=== PATIENT | female | born 1945 | race Caucasian/White ===

== ENCOUNTER 2017-03-11 14:57 | Inpatient (IN) | payer MEDICARE ==
[~2017-03-11] VITALS: Ht 182.9 cm; Wt 99.8 kg
[2017-03-11] VITALS (8 sets, daily range): BP systolic 137–160; BP diastolic 53–79; PULSE 72–95; RESP 17–24; O2SAT 93–98
[2017-03-11 15:18] LABS: BASOPHILS % (AUTO) 0.2 % (0-3)
[2017-03-11 15:23] LABS: EOSINOPHILS % (AUTO) 6.5 % (0-5); Mean Corpuscular Hemoglobin 32.7 pg (27.0-35.0); NEUTROPHILS % (AUTO) 54.8 % (40-74); Platelet Count 508 bil/L (150-400)
--- NOTE | 2017-03-11 15:44 | DRSVH ---
PROCEDURE: X-RAY CHEST ONE VIEW, PORTABLE ([id number]) INDICATIONS: Chest pain. TECHNIQUE: One view of the chest was acquired. COMPARISON: None. FINDINGS: Surgical changes and devices: Sternotomy and CABG. Lungs and pleura: There is moderate left pleural effusion. No pneumothorax. Left basilar atelectasis . Mediastinum: Mediastinal contours appear normal. Heart size is normal. Bones and chest wall: No suspicious bony lesions. Overlying soft tissues appear unremarkable. IMPRESSION: Moderate left pleural effusion with left basilar atelectasis. Dictated by: Srikanth Jaramillo M.D. on 03/11/2017 at 15:40 Approved by: Srikanth Jaramillo M.D. on 03/11/2017 at 15:42
[2017-03-11 15:55] LABS: TROPONIN T < 0.010 ug/L (0.0-0.011)
--- NOTE | 2017-03-11 15:58 | ED.REPORT ---
HPI-General Illness Date of Service Mar 11, 2017 ED Provider: Ike Juarez MD Patient is a 71 year old female with a history of stage 3 renal failure, DVT and PE who presents to the ED status post CABG from 03/02/17 via EMS complaining of right sided chest pain onset 0230 this morning. Associated symptoms include shortness of breath, cough, palpitations, pain with deep inspiration and dyspnea with exertion. She describes the pain as a sharp pressure. The patient states that the pain was slightly relieved, going from a 7/10 to a 5/10 after receiving nitro at [facility]. Patient reports that she was working hard with her cardiac therapy yesterday and thought her pain might be musculoskeletal but she also has PE scarring and decided she should come in to have everything checked out. Patient is not currently on anticoagulants. Nursing Notes Stated Complaint: CHEST PAIN Chief Complaint: Chest Pain Nursing Notes Reviewed: Yes Allergies: Coded Allergies: TAPE (Verified Allergy, Mild, 03/11/17) warfarin (Verified Allergy, Mild, emesis, 03/11/17) Uncoded Allergies: SULFA (Allergy, Severe, anaphylaxis, 03/11/17) STATINS (Allergy, Intermediate, muscle weakness, 03/11/17) General Time Seen by MD: 15:19 Chief Complaint Chest pain Hx Obtained From: Patient Arrived By: Ambulance Sudden in Onset?: Yes Onset Occurred: 9 - 12 hours ago Symptom Duration: Since onset Location: : Chest Quality: Painful Severity: Current: Moderate Associated with: Reports: Shortness of breath Recent Healthcare: Recent doctor visit, Recent hospitalization Past Medical History Past Medical History PE DVT Past Surgical History CABG Smoking History Unknown if Ever Smoker Social History Other Social History: Good social support Ambulatory Status Independent Review of Systems Full Review of Systems Constitutional: Denies: Chills, Fever Respiratory: Reports: Dyspnea on exertion, Shortness of breath, Denies: Non-productive cough Cardiovascular: Reports: Chest pain, Palpitations Complete sys rev & neg: except as marked. Physical Exam Constitutional: Well-developed, well-nourished. Not diaphoretic. Head: Normocephalic and atraumatic. Mouth/Throat: Oropharynx is clear and moist. No oropharyngeal exudate. Eyes: EOM are normal. Pupils are equal, round, and reactive to light. Neck: Supple, no tracheal deviation. Cardiovascular: Normal rate,regular rhythm. Equal and intact distal pulses throughout. Pulmonary/Chest: Effort normal and breath sounds normal. No respiratory distress. Abdominal: Soft. No distension. There is no tenderness, rebound, or guarding. . Musculoskeletal: Range of motion grossly intact, moving all extremities. Trace peripheral edema bilateral lower extremities. Neurological: AOx3. Grossly nonfocal exam. Strength and sensation intact and equal to bilateral upper and lower extremities. Skin: Warm and dry, no rashes or pallor appreciated. Psychiatric: Appropriate mood and affect. Behavior appears normal. Vital Signs Vital Signs Date Time Temp Pulse Resp B/P Pulse Ox O2 Delivery O2 Flow Rate FiO2 03/11/17 17:46 76 21 137/53 96 Nasal Cannula 2 03/11/17 16:30 75 20 147/57 98 Nasal Cannula 2 03/11/17 15:42 72 17 138/59 97 Room Air 03/11/17 15:08 36.4 74 18 142/62 97 Room Air Initial VS: Reviewed Interpretation & Diagnostics Lab Results Interpretation Result Diagram: 03/11/17 1510 03/11/17 1510 Test 03/11/17 15:10 03/11/17 17:21 White Blood Count 9.2th/mm3 (3.8-10.1) Red Blood Count 2.72mil/mm3 (3.90-5.20) Hemoglobin 8.9g/dL (12.0-15.6) Hematocrit 28.3% (35.0-46.0) Mean Corpuscular Volume 104.0fL (81-100) Mean Corpuscular Hemoglobin 32.7pg (27.0-35.0) Mean Corpuscular Hemoglobin Concent 31.4% (32.0-37.0) Red Cell Distribution Width 16.7% (12.3-15.4) Platelet Count 508bil/L (150-400) Neutrophils (%) (Auto) 54.8% (40-74) Lymphocytes (%) (Auto) 25.8% (14-46) Monocytes (%) (Auto) 12.0% (4-12) Eosinophils (%) (Auto) 6.5% (0-5) Basophils (%) (Auto) 0.2% (0-3) D-Dimer 5.72mg/L FEU (<0.50) Sodium Level 141mEq/L (134-144) Potassium Level 4.1mEq/L (3.5-5.2) Chloride Level 104mEq/L (97-108) Carbon Dioxide Level 23mmol/L (18-29) Blood Urea Nitrogen 10mg/dL (8-27) Creatinine 0.98mg/dL (0.57-1.00) Estimat Glomerular Filtration Rate 80mL/min (>59) Glucose Level 121mg/dL (60-99) Calcium Level 9.3mg/dL (8.5-10.1) Magnesium Level 1.7mg/dL (1.6-2.6) Total Bilirubin 0.3mg/dL (0.0-1.2) Aspartate Amino Transf (AST/SGOT) 23U/L (0-50) Alanine Aminotransferase (ALT/SGPT) 17U/L (0-32) Alkaline Phosphatase 68U/L (25-165) Troponin T < 0.010ug/L (0.0-0.011) Pro-B-Type Natriuretic Peptide 2107pg/mL (0-301) Total Protein 5.9g/dL (6.4-8.4) Albumin 3.2g/dL (3.4-5.0) Hold Urine Received (Received) ECG Interpretation ECG Interpretation: ventricular premature complex RBBB Time: 15:11 Interpreted by: ED physician Normal ECG Interpretation: Normal rate (74), Normal sinus rhythm ECG Interpretation: unchanged from previous Time: 18:25 Interpreted by: ED physician Normal ECG Interpretation: Normal rate (96), Normal sinus rhythm X-Ray Chest Interpretation Chest Xray Interpretation: IMPRESSION: Moderate left pleural effusion with left basilar atelectasis. Dictated by: Srikanth Jaramillo M.D. on 03/11/2017 at 15:40 Approved by: Srikanth Jaramillo M.D. on 03/11/2017 at 15:42 View: Portable, 1 view Interpretation / Wet Read by: Interpret - Radiologist CT Chest Interpretation IMPRESSION: 1. Filling defects within the first and second order branches of the right pulmonary artery extending into the right upper, middle and lower lobes. In addition, there are scattered areas of more distal filling defects identified within branches of the left pulmonary artery extending into the upper and lower lobes. Findings are consistent with emboli. 2. Mild bilateral pleural effusions with superimposed consolidation on the left. The latter may be reflective of developing pneumonia and/or atelectasis. The above findings were discussed with Dr. Ike Juarez on 03/11/17 at 6:30 PM. Dictated by: Nunu Cerna M.D. on 03/11/2017 at 18:26 Approved by: Nunu Cerna M.D. on 03/11/2017 at 18:31 Study type: CT pulm angiogram Interpretation / Wet Read by: Interpret - Radiologist, Discussed w radiologist Re-Eval/Medical Decision Med Decision/Clinical Course In summary, 71-year-old female with a complex past medical history including recent CABG, history of PE presenting to the ED for evaluation of the acute onset of chest pain that started at approximately 0230 this morning. Concern for ACS given her recent CABG. EKG with no acute ischemic changes appreciated. Troponin negative. CT scan of the patient's chest demonstrates bilateral pulmonary emboli. No evidence of significant right heart strain. BNP elevated though unclear if this is related or not. It seems that this would most likely account for the patient's symptoms at this time, however given her recent history of CABG, the cardiothoracic surgeon at [place] was contacted, as noted below. Patient started on a heparin drip here in the emergency department. Plan admission for further evaluation and management of this patient. Discussed the plan with the patient length, who is agreeable and had no further questions. Time of Eval: 16:22 Re-Evaluation/Progress Note: Patient reports that the pain when she's laying and still, goes down to a 3/10. Time of Eval: 16:32 Re-Evaluation/Progress Note: Discussed plan for CT. Patient understands and agrees to plan. All questions were addressed. Time of Eval: 18:32 Re-Evaluation/Progress Note: Discussed CT results and plan for admit. Patient understands and agrees to plan. All questions were addressed. Consultation #1: Referral / Consult Name: Steven Lynn MD Consulted With: Cardiology Call Returned at: 16:50 Temperature Logging Operator: Agrees with eval, Agrees with plan Note: Consult with Dr. Lynn, who recommends the patient be observed pending CTA. If patient has worsening symptoms, cardiology can be consulted as an inpatient. Consultation #2: Referral / Consult Name: Joseph John MD Consulted With: Hospitalist Call Returned at: 18:25 Temperature Logging Operator: Agrees with eval, Agrees with plan, Accepts admit Consultation #3: Consulted With: Cardiology Call Returned at: 18:47 Note: Consult with Dr. Eric Garza, aircraft maintenance engineer at [facility], who states that there is no other acute cardiothoracic surgery recommendations and does not need transfer at this time. Recommended cardiology involvement as inpatient. Counseled Regarding: Diagnosis, Lab results, Need for admission Discharge & Departure Primary Impression: Pulmonary embolism Pulmonary embolism type: other Chronicity: acute Acute cor pulmonale presence: without acute cor pulmonale Qualified Code: I26.99 - Other pulmonary embolism without acute cor pulmonale Disposition: ADMITTED TO HOSPITAL Discharge Condition All VS Reviewed: Yes Condition: Stable Crit Care Except Billable Proc Time Spent: 75-104 minutes Services Performed: Patient management by me, Time spent at bedside, Reviewing test results, Reviewing imaging, Discussing patient care, Documentation in record, Time with fam/surrogate Scribe Attestation Portions of this note were transcribed by Kary Resendez. I, Dr. Juarez personally performed the history, physical exam and medical decision-making; I reviewed and confirmed the accuracy of the information in the transcribed note. Signed by: Ilene Faustin, 03/11/17 and 5150 Ike Juarez MD Mar 11, 2017 15:58 Xenia Resendez Mar 11, 2017 16:11
[2017-03-11 15:59] LABS: Magnesium 1.7 mg/dL (1.6-2.6)
[2017-03-11] MEDS ORDERED: 0.9% Sodium Chloride 1,000 ML IV ONE (16:33)
[2017-03-11] MEDS ORDERED: HYDROmorphone 1 mg/mL Inj IVPUSH ONE (17:00)
--- NOTE | 2017-03-11 18:33 | DRSVH ---
PROCEDURE: CT ANGIO CHEST PULMONARY EMBOLISM ([id number]) INDICATIONS: dyspnea, hx of PE; also recent CABG TECHNIQUE: After the administration of intravenous contrast, 2 mm thick sections acquired from the pulmonary api stuart to the posterior costophrenic angles. 3-dimensional maximum intensity projection (MIP) coronal a nd sagittal reformats were then acquired through the thorax. For radiation dose reduction, the follo wing was used: automated exposure control, adjustment of mA and/or kV according to patient size. COMPARISON: None. FINDINGS: Image quality: Excellent. Pulmonary arteries: Pulmonary arteries are normal in size. There is a filling defect identified in t he first and second order branches of the right pulmonary artery extending into the right upper, midd le and lower lobes. There are several areas of tertiary branch heterogeneous filling appearance also identified on the left. Lungs and pleura: There are mild bilateral pleural effusions, left greater than right, with superimpo sed consolidations most prominent on the left. Overall appearance of increased pulmonary vascularity is present. Mediastinum: Heart size is normal, without pericardial effusion. No mediastinal or hilar adenopathy . Thoracic aorta is normal in caliber and enhancement. Esophagus is normal in caliber, without hiat al hernia. Bones and chest wall: No suspicious bony lesions. Ribs and thoracic spine appear intact throughout. Thyroid gland there is prominent low attenuation focus in completely visualize within the right thy roid lobe. No axillary or supraclavicular adenopathy. Abdomen: Visualized upper abdominal solid organs appear normal in the early arterial phase of enhanc ement. IMPRESSION: 1. Filling defects within the first and second order branches of the right pulmonary artery extending into the right upper, middle and lower lobes. In addition, there are scattered areas of more distal filling defects identified within branches of the left pulmonary artery extending into the upper and lower lobes. Findings are consistent with emboli. 2. Mild bilateral pleural effusions with superimposed consolidation on the left. The latter may be re flective of developing pneumonia and/or atelectasis. The above findings were discussed with Dr. Ike Juarez on 03/11/17 at 6:30 PM. Dictated by: Nunu Cerna M.D. on 03/11/2017 at 18:26 Approved by: Nunu Cerna M.D. on 03/11/2017 at 18:31
[2017-03-11] MEDS ORDERED: Heparin 25K Unit/500mL 0.45 NS 25,000 UNIT in IV Premix 1 EACH IV ONE (18:35)
[2017-03-11] MEDS ORDERED: Heparin 5,000 Unit/mL Inj IVPUSH ONE (18:35)
--- NOTE | 2017-03-11 21:08 | PCM.HPMED ---
Subjective Date of Service Mar 11, 2017 Primary Provider: Admitting Physician: Raymundo Maharaj MD Primary Care Physician: Other,Physician Attending Physician: Raymundo Maharaj MD Admit Status: From the Emergency Department Chief Complaint: New onset sharp pleuritic Chest pain worsened by deep breathing, proximal palpitation secondary to her A. 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 Patient is unable to tell if this pain is similar to her previous PE experience secondary to her recent thoracic surgery. The patient states that her chest pain is worse with deep breathing and with exertion. Pain is 8 out of 10 at maximum and currently. Associated symptoms include shortness of breath, cough that is nonproductive, and intermittent paroxysmal A. fib that causes her to have palpitations. Received (4)81 mg aspirin and 2 nitros at [facility] and says that this only caused her to get a headache but did not relieve her pain. Note this is a inconsistency with the ED H&P for patient reportedly stated she had a decrease in her pain with nitroglycerin. Patient is somewhat a vague poor historian simply because of her discomfort. She becomes impatient with questioning. Prema has been active with her cardiac therapy at [facility] and states that she started to feel the chest pain start after having completed her therapy yesterday. She states that she initially thought it was muscle skeletal but given her history of PE decided to come to the ED. Patient states she has been actively using her incentive spirometry and had been registering 1999 only to have it fall to a maximum of 800 this morning. In the ED: Signs: Temperature 36.4, pulse 74, respiratory rate 18, blood pressure 142/62 and map of 88, pulse ox 97% on room air. Patient was found to have an elevated d-dimer at 5.72, his PTT was 24.6 CXR: Moderate left pleural effusion with left basilar atelectasis. CT angiogram showed: Filling defects within the first and second order branches of the right pulmonary artery extending into the right upper, middle and lower lobes. In addition, there are scattered areas of more distal filling defects identified within branches of the left pulmonary artery extending into the upper and lower lobes. Findings are consistent with emboli. 2. Mild bilateral pleural effusions with superimposed consolidation on the left. The latter may be reflective of developing pneumonia and/or atelectasis. Hemogram showed WBC 9.2 with 54.8% neutrophils and 25.8% lymphocytes, eos of 6.5 and elevated, his H&H was 8.9/ 28.3, MCV 104, MCHC 31.4, platelets 508. Patient received the following medications in the emergency department: Heparin 10,000 units once, followed by drip protocol IV Dilaudid 1 mg once, Fluids normal saline 1 L bolus Chemistry panel: Was within normal limits with the exception of an elevated glucose of 121, proBNP was 2000 Troponin was less than 0.010 EKG was normal sinus rhythm with a rate of 74, and right bundle branch block Review of Systems: A comprehensive review of systems was conducted and was negative except as mentioned in history of present illness. Allergies Coded Allergies: TAPE (Verified Allergy, Mild, 03/11/17) warfarin (Verified Allergy, Mild, emesis, 03/11/17) Uncoded Allergies: SULFA (Allergy, Severe, anaphylaxis, 03/11/17) STATINS (Allergy, Intermediate, muscle weakness, 03/11/17) Home Medications Awaiting med reconciliation H History of PE History of DVT History of decrease pulmonary function secondary to prior PE seen by spindle setter Dr. Cortez at the [facility] Stage III renal failure, seen by Dr. Oneill nephrology at [facility] History of coronary artery disease status post CABG on 03/02/2017 at [facility], raw scales operator is Dr. Pedraza History of just tumor status post resection 01/01/2016, on Gleevec which was held since 02/28/2017 for her cardiac surgery, oncologist is Dr. Frederick Hypothyroidism takes nature thyroid Surgical History History of CABG 03/02/2017 History of gist tumor status post resection 2013 history of knee surgery 2009 Family History Father with coronary artery disease Mother with history of liver cancer status post EtOH Maternal grandmother with breast cancer Paternal grandmother with brain cancer Social History Hx Alcohol Use: No Hx Substance Use: No Smoking Status: Unknown if Ever Smoker Living Arrangement: with Family (contacts are patient's daughter and son, Paloma and Philip) Exam Vital Signs Vital Sign - Last Date Time Temp Pulse Resp B/P Pulse Ox O2 Delivery O2 Flow Rate FiO2 03/11/17 20:35 37.3 88 24 158/79 Nasal Cannula 2.00 03/11/17 20:22 93 Exam General: Alert and oriented 3, in moderate distress given her recent CABG and her new onset chest pain. HEENT: NC/AT, eyes, PERRLA, EOMI, neck, soft supple, no adenopathy, no JVD, no masses, no thyromegaly, throat mucous membranes pink and moist, no erythema, no exudates, no tonsillar swelling, no uvular deviation. Dentures on the top Lungs: Bilateral crackles in the lung bases extending to mid lung mack bilaterally use of accessory muscles of respiration, good air movement, good respiratory effort. Should coughing but nonproductive, using pillow on chest during coughing for pain. Chest has well healing Scar from recent CABG. Heart: Regular rate and rhythm, no murmur, S1-S2 present, no rub, no click, no distant heart sounds, Abdomen: Soft, nontender, nondistended, bowel sounds active, no rebound, no guarding, old midline abdominal scar from status post gist tumor resection Genitourinary: No CVA tenderness, no suprapubic tenderness, no Bradford catheter, Extremities: Patient has a left medial scar extending from the antecubital fossa to the proximal wrist, a right lower extremity medial scar extending from the groin to the proximal knee, and a additional scar on the chest area from mammary artery harvest. , pulses equal and symmetric upper/lower extremity including radial and dorsalis pedis, no edema Neurologic: Grossly neurologically intact, beaking in full sentences, no focal neurological signs Skin: With several new scars as mentioned previously however warm and dry nondiaphoretic without rash. Psychiatric: Mood is somewhat agitated at times however mood and affect are congruent and appropriate given her level of discomfort. Lab and Diagnostics Result Diagram: 03/11/17 1510 03/11/17 1510 X-Rays, CTs and MRIs Date of Service: 03/11/17 1505 PROCEDURE: X-RAY CHEST ONE VIEW, PORTABLE INDICATIONS: Chest pain. Surgical changes and devices: Sternotomy and CABG. Lungs and pleura: There is moderate left pleural effusion. No pneumothorax. Left basilar atelectasis. Mediastinum: Mediastinal contours appear normal. Heart size is normal. Bones and chest wall: No suspicious bony lesions. Overlying soft tissues appear unremarkable. IMPRESSION: Moderate left pleural effusion with left basilar atelectasis. Dictated by: Srikanth Jaramillo M.D. on 03/11/2017 at 15:40 Approved by: Srikanth Jaramillo M.D. on 03/11/2017 at 15:42 Date of Service: 03/11/17 1633 PROCEDURE: CT ANGIO CHEST PULMONARY EMBOLISM INDICATIONS: dyspnea, hx of PE; also recent CABG Pulmonary arteries: Pulmonary arteries are normal in size. There is a filling defect identified in the first and second order branches of the right pulmonary artery extending into the right upper, middle and lower lobes. There are several areas of tertiary branch heterogeneous filling appearance also identified on the left. Lungs and pleura: There are mild bilateral pleural effusions, left greater than right, with superimposed consolidations most prominent on the left. Overall appearance of increased pulmonary vascularity is present. Mediastinum: Heart size is normal, without pericardial effusion. No mediastinal or hilar adenopathy. Thoracic aorta is normal in caliber and enhancement. Esophagus is normal in caliber, without hiatal hernia. Bones and chest wall: No suspicious bony lesions. Ribs and thoracic spine appear intact throughout. Thyroid gland there is prominent low attenuation focus in completely visualize within the right thyroid lobe. No axillary or supraclavicular adenopathy. Abdomen: Visualized upper abdominal solid organs appear normal in the early arterial phase of enhancement. IMPRESSION: 1. Filling defects within the first and second order branches of the right pulmonary artery extending into the right upper, middle and lower lobes. In addition, there are scattered areas of more distal filling defects identified within branches of the left pulmonary artery extending into the upper and lower lobes. Findings are consistent with emboli. 2. Mild bilateral pleural effusions with superimposed consolidation on the left. The latter may be reflective of developing pneumonia and/or atelectasis. The above findings were discussed with Dr. Ike Juarez on 03/11/17 at 6:30 PM. Dictated by: Nunu Cerna M.D. on 03/11/2017 at 18:26 Approved by: Nunu Cerna M.D. on 03/11/2017 at 18:31 Assessment & Plan Patient had recent CABG done 10 days ago and concern was for acute coronary syndrome. He should found to have bilateral PE on CT angiogram. Was admitted for heparin drip #Acute Pulmonary Embolism, Present on Admission, active -Has known history of PEs and DVTs in the past. -Signs: Temperature 36.4, pulse 74, respiratory rate 18, blood pressure 142/62 and map of 88, pulse ox 97% on room air. - Patient was found to have an elevated d-dimer at 5.72, his PTT was 24.6 - EKG showed normal sinus rhythm with a rate of 96 and a right bundle branch block - Troponin negative initially, will trend 2 more - B/L LE Doppler US not done - CXR: Moderate left pleural effusion with left basilar atelectasis. - CT Chest: Filling defects within the first and second order branches of the right pulmonary artery extending into the right upper, middle and lower lobes. In addition, there are scattered areas of more distal filling defects identified within branches of the left pulmonary artery extending into the upper and lower lobes. Findings are consistent with emboli. 2. Mild bilateral pleural effusions with superimposed consolidation on the left. The latter may be reflective of developing pneumonia and/or atelectasis. - Continue Heparin Drip started the ED with goal aPTT of 1.5 to 2.5 times upper limit of normal - Plan to Transion to Warfarin (D/C on warfarin with reevaluation in 3 months and possible 6 months of therapy) - Continuous Cardiac Monitoring - Daily PT/aPTT/INR - O2 Sats > 94% - Monitor for Anticoagulation Side effects - We will order pro calcitonin to evaluate for possible comorbid pneumonia - DDX Pneumonia, Pneumothorax, IN/ACS, - Patient is taking by mouth Dilaudid for her recent CABG, will continue IV with IV Dilaudid while in house given her PE. We will titrate pain medication appropriately #Anemia, macrocytic hypochromic, present on admission, active chronicity unknown - H&H was 8.9/ 28.3, MCV 104, MCHC 31.4 # History of coronary artery disease with recent CABG 10 days ago, was on admission - EKG with right bundle branch block otherwise normal EKG - Negative troponin - ED physician contacted cardiothoracic surgeon at [facility]. He had no further acute cardiothoracic surgery recommendations and does not need a transfer at this time. He recommended cardiology involvement as inpatient at this hospital. - ED physicians spoke with Dr. Lynn cardiology and patient was started on heparin drip for PE. And admitted for further observation. - Cardiology needs to be consulted in the a.m if patient has worsening symptoms. Dr. Zepeda will be contact center manager. # History of PE/DVT - Status post knee surgery in 2008 #History of decrease pulmonary function secondary to prior PE, - seen by spindle setter Dr. Cortez at the [facility] # Stage III renal failure, presumed stable - seen by Dr. Oneill nephrology at [facility] - Creatinine 0.98 with unknown baseline # History of coronary artery disease status post CABG on 03/02/2017, active - [facility], raw scales operator is Dr. Pedraza History of GIST tumor status post resection 01/01/2016, presumed stable - on Gleevec which was held since 02/28/2017 for her cardiac surgery, oncologist is Dr. Frederick - We will continue to hold Gleevec until patient restarted by her oncologist # Hypothyroidism, presumed stable - states she has not been having night sweats since stopping her nature thyroid - Patient takes nature thyroid home Disposition: Admitted to in patient service with expected length of stay greater than 2 days, secondary to severity of presenting symptoms, treatment plan, complexity of clinical work up, and risk of adverse events. CODE STATUS: Full code PCP: Rachael Montes DVT PE prophylaxis: Patient currently on a heparin drip for PE Contact: Philip son [phone], Paloma daughter [phone] VTE Prophylaxis: Other (on heparin drip for PE) Resuscitation Status: CPR: Attempt Resuscitation Maik Lew DO Mar 11, 2017 21:08
[2017-03-11] MEDS ORDERED: Ondansetron 2 mg/mL 2 mL Inj IVPUSH PRN (21:35)
[2017-03-11] MEDS ORDERED: Senna-Docusate 8.6-50 mg Tablet PO PRN (21:35)
[2017-03-11] MEDS ORDERED: Alum-Mag Hydrox-Simeth 30 mL Suspension PO PRN (21:35)
[2017-03-11] MEDS ORDERED: Polyethylene Glycol (PEG) 17 Gm Powder PO PRN (21:35)
[2017-03-11] MEDS ORDERED: HYDROmorphone 0.5 mg/0.5 mL iSecure Syringe IVPUSH PRN (21:55)
[2017-03-11] MEDS: HYDROmorphone 0.5 mg/0.5 mL iSecure Syringe IVPUSH PRN (22:27)
[2017-03-11] MEDS: 0.9% Sodium Chloride 1,000 ML IV SCH (22:28)
[2017-03-11] MEDS: Sodium Chloride LOK Flush 10 mL Syringe IVFLUSH SCH (22:28)
[2017-03-11] MEDS ORDERED: MAGN400O4 PO (22:51)
[2017-03-11] MEDS ORDERED: FURO40SO4 PO (22:51)
[2017-03-11] MEDS ORDERED: SENN-133 PO (22:51)
[2017-03-11] MEDS ORDERED: PANT40TA3 PO (22:51)
[2017-03-11] MEDS ORDERED: HYDR-3740 PO (22:51)
[2017-03-11] MEDS ORDERED: ASPI81TA3 PO (22:51)
[2017-03-11] MEDS ORDERED: POTA-62 PO (22:51)
[2017-03-11] MEDS ORDERED: QUE9 PO (22:51)
[2017-03-11] MEDS ORDERED: ACET325T51 PO (22:51)
[2017-03-11] MEDS ORDERED: THYROID PO (22:51)
[2017-03-11] MEDS ORDERED: DOCU-41 PO (22:51)
[2017-03-11] MEDS ORDERED: HYDR2TAB28 PO (22:51)
[2017-03-11] MEDS ORDERED: METO50TA3 PO (22:51)
[2017-03-11 23:17] LABS: TROPONIN T 0.01 ug/L (0.0-0.011)
[2017-03-11 23:29] LABS: Magnesium 1.7 mg/dL (1.6-2.6)
[2017-03-12] VITALS (10 sets, daily range): BP systolic 112–155; BP diastolic 67–87; PULSE 68–103; RESP 18–22; O2SAT 92–96
[2017-03-12] MEDS: HYDROmorphone 0.5 mg/0.5 mL iSecure Syringe IVPUSH PRN ×4 (02:31→22:08)
[2017-03-12 03:48] LABS: BASOPHILS % (AUTO) 0.3 % (0-3); EOSINOPHILS % (AUTO) 6.4 % (0-5); MONOCYTES % (AUTO) 11.2 % (4-12); Mean Corpuscular Hemoglobin 32.3 pg (27.0-35.0); Mean Corpuscular Volume 103.4 fL (81-100); NEUTROPHILS % (AUTO) 51.9 % (40-74); Platelet Count 426 bil/L (150-400)
[2017-03-12 04:34] LABS: TROPONIN T 0.01 ug/L (0.0-0.011)
--- NOTE | 2017-03-12 06:02 | NUR ---
heparin drip: heparin drip started in ER at 20 units after bolus given. PTT 4am was 184.4, thought lab error due to heparin drip, drip turned off and redrawn at 0530 was 178.8, notified, PTT to be drawn at 0630 hourly per heparin protocol with goal of less than 150.
[2017-03-12] MEDS: Sodium Chloride LOK Flush 10 mL Syringe IVFLUSH SCH ×3 (08:30→22:16)
[2017-03-12] MEDS ORDERED: Magnesium Hydroxide 10 mL Oral Concentration PO PRN (08:40)
[2017-03-12] MEDS ORDERED: HYDROcodone-APAP 10-325 mg PO SCH (08:40)
[2017-03-12 09:28] LABS: APPEARANCE,URINE CLEAR (CLEAR,HAZY); COLOR,URINE STRAW (YELLOW); OCCULT BLOOD,URINE NEGATIVE (NEGATIVE); PH,URINE 7.5 (5.0-8.0); UROBILINOGEN,URINE NORMAL (NORMAL)
--- NOTE | 2017-03-12 09:42 | NUR ---
Tele 8.6 sec run of PSVT at 0909 per secured entrance monitor. pt had been up to commode. GARCIA at baseline. notified. Stable SR 82 at this time 0943. Will continue to monitor. Addendum: 03/12/17 at 1026 by DARINEL APRKS RN Pt, per tele, experienced another 4 seconds of PSVT. VSS. again notified. Metoprolol given.
[2017-03-12] MEDS: Pantoprazole 40 mg ER24 Tablet PO SCH (09:54)
[2017-03-12] MEDS: Potassium Chloride 20 mEq SR Tablet PO SCH (09:56)
[2017-03-12] MEDS: THYROID 162.5 MG PO SCH (09:56)
[2017-03-12] MEDS: 0.9% Sodium Chloride 1,000 ML IV SCH (10:04)
--- NOTE | 2017-03-12 10:34 | PCM.PNMED ---
Subjective Date of Service Mar 12, 2017 Subjective Overnight the patient reports trouble sleeping due to her pleuritic chest pain and coughing fits. She also reports some racing heartbeats intermittently. This morning she is much the same - she reports chest pain and coughing fits. She expresses interest in eating this morning. She also stresses the need to coordinate care with her oncologist (Otoniel) and CT surgeon (Wilfredo) both of [facility] to form a unified care plan. Exam Vital Signs Vital Sign - Last Date Time Temp Pulse Resp B/P Pulse Ox O2 Delivery O2 Flow Rate FiO2 03/12/17 09:50 103 22 153/87 93 Nasal Cannula 1.00 03/12/17 08:35 37.2 Intake and Output 03/11/17 03/11/17 03/12/17 Cumulative From/Thru 15:00 23:00 07:00 03/11/17 15:08 - 03/12/17 06:54 Intake Total 1000 ml 667 ml 1667 ml Output Total 1100 ml 1100 ml Balance 1000 ml -433 ml 567 ml Intake Oral 0 ml 0 ml IV Total 1000 ml 667 ml 1667 ml Output Urine Total 1100 ml 1100 ml # Voids 2 2 Exam General: Elderly woman lying in her bed in moderate distress when coughing HEENT: NC/AT, PERRLA, EOMI. Membranes pink and moist, no erythema/exudates Neck: Supple, no adenopathy, no JVD, no thyromegaly Pulm: Poor inspiratory effort due to pain. Bilateral crackles in the lung bases. Nonproductive cough, using pillow on chest during coughing for pain. Chest has well healing scar from recent CABG. Heart: RRR, normal S1-S2 present, no murmur/rubs/gallops Abd: Soft, nontender, nondistended, no rebound or guarding. Bowel sounds active , old midline abdominal scar Extremities: Patient has a left UE scar extending from her antecubital fossa to wrist, a right LE scar extending from the groin to the proximal knee. She is wearing compression stockings without edema, erythema, or tenderness. Neurologic: CN 2-12 intact, A&Ox3. Globally weak in all extremities. Skin: Warm, dry. Scars as noted above. No rashes or bruising. Psychiatric: She is anxious about her prognosis with all her comorbidities IVs and Medications Medications Reviewed: Medications were reviewed in detail Lab and Diagnostics Result Diagram: 03/12/17 0330 03/12/17 0330 X-Rays, CTs and MRIs Date of Service: 03/11/17 1505 PROCEDURE: X-RAY CHEST ONE VIEW, PORTABLE INDICATIONS: Chest pain. Surgical changes and devices: Sternotomy and CABG. Lungs and pleura: There is moderate left pleural effusion. No pneumothorax. Left basilar atelectasis. Mediastinum: Mediastinal contours appear normal. Heart size is normal. Bones and chest wall: No suspicious bony lesions. Overlying soft tissues appear unremarkable. IMPRESSION: Moderate left pleural effusion with left basilar atelectasis. Dictated by: Srikanth Jaramillo M.D. on 03/11/2017 at 15:40 Approved by: Srikanth Jaramillo M.D. on 03/11/2017 at 15:42 Date of Service: 03/11/17 1633 PROCEDURE: CT ANGIO CHEST PULMONARY EMBOLISM INDICATIONS: dyspnea, hx of PE; also recent CABG Pulmonary arteries: Pulmonary arteries are normal in size. There is a filling defect identified in the first and second order branches of the right pulmonary artery extending into the right upper, middle and lower lobes. There are several areas of tertiary branch heterogeneous filling appearance also identified on the left. Lungs and pleura: There are mild bilateral pleural effusions, left greater than right, with superimposed consolidations most prominent on the left. Overall appearance of increased pulmonary vascularity is present. Mediastinum: Heart size is normal, without pericardial effusion. No mediastinal or hilar adenopathy. Thoracic aorta is normal in caliber and enhancement. Esophagus is normal in caliber, without hiatal hernia. Bones and chest wall: No suspicious bony lesions. Ribs and thoracic spine appear intact throughout. Thyroid gland there is prominent low attenuation focus in completely visualize within the right thyroid lobe. No axillary or supraclavicular adenopathy. Abdomen: Visualized upper abdominal solid organs appear normal in the early arterial phase of enhancement. IMPRESSION: 1. Filling defects within the first and second order branches of the right pulmonary artery extending into the right upper, middle and lower lobes. In addition, there are scattered areas of more distal filling defects identified within branches of the left pulmonary artery extending into the upper and lower lobes. Findings are consistent with emboli. 2. Mild bilateral pleural effusions with superimposed consolidation on the left. The latter may be reflective of developing pneumonia and/or atelectasis. The above findings were discussed with Dr. Ike Juarez on 03/11/17 at 6:30 PM. Dictated by: Nunu Cerna M.D. on 03/11/2017 at 18:26 Approved by: Nunu Cerna M.D. on 03/11/2017 at 18:31 Assessment & Plan Patient is a 71 year old woman with recent CABG done 10 days ago with initial concern was for acute coronary syndrome. She was found to have bilateral PE on CT angiogram. She is admitted to be on a heparin drip. Pulmonary Embolism, acute, Present on Admission, improving -Pt reports less pain when breathing and coughing less - EKG 03/12 virtually unchaged - Troponin negative x3 - CXR: Moderate left pleural effusion with left basilar atelectasis. - CT Chest: Filling defects within the first and second order branches of the right pulmonary artery extending into the right upper, middle and lower lobes. In addition, there are scattered areas of more distal filling defects identified within branches of the left pulmonary artery extending into the upper and lower lobes. Findings are consistent with emboli. Mild bilateral pleural effusions with superimposed consolidation on the left. The latter may be reflective of developing pneumonia and/or atelectasis. -Procalcitonin normal, unlikely pneumonia - B/L LE Doppler US not done -Continue telemetry -Daily INR/aPTT/PT - Patient is taking by mouth Dilaudid for her recent CABG, will continue IV with IV Dilaudid while in house given her PE. We will titrate pain medication appropriately -Continue heparin drip until 7/1 AM with transition to eliquis due to pt allergy to warfarin -Talked with both her oncologist (Otoniel) and CT surgeon (Wilfredo) who agreed with eliquis as an outpatient after 1-2 days of heparin drip Anemia, macrocytic hypochromic, chronicity unknown, present on admission, active - H&H was 8.9/ 28.3, MCV 104, MCHC 31.4 -Trend H/H, consider transfusion if she becomes symptomatic History of coronary artery disease with recent CABG 10 days ago, present on admission, improving - EKG on 03/12 unchanged, chest pain pleuritic in nature - Negative troponin x3 - Her personal CT surgeon, Dr. Villalobos at [place], agreed with the plan to continue heparin and start eliquis as outpatient - Consider consulting cardiology if her symptoms worsen History of PE/DVT - Status post knee surgery in 2008 - Continue heparin drip and transition to eliquis History of decrease pulmonary function secondary to prior PE - Pt sees Dr. Cortez at the [facility] Stage III renal failure, presumed stable - Pt sees Dr. Oneill nephrology at [facility] - Creatinine 0.98 on admission fell to 0.89 on 03/12 -Continue to trend History of coronary artery disease status post CABG on 03/02/2017, active - [facility], poker dealer is Dr. Pedraza -[facility], CT surgeon Dr. 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 Frederick - We will continue to hold Gleevec until patient restarted by her oncologist Hypothyroidism, presumed stable - states she has not been having night sweats since stopping her nature thyroid - Continue home nature thyroid Disposition: The patient will likely discharge over the weekend depending on her response to the transition between heparin and eliquis and the complexity of her work up, treatment plan, and risk of adverse events. CODE STATUS: Full code PCP: Rachael Montes DVT PE prophylaxis: Patient currently on a heparin drip for PE Contact: Philip son [phone], Paloma daughter [phone] VTE Prophylaxis: Other (on heparin drip for PE) VTE Mechanical Devices: Anti-Embolic stockings Resuscitation Status: CPR: Attempt Resuscitation Time spent 30 minutes Attending Statement Patient was seen and examined at bedside in addition I directly supervised provided by Resident physician, Dr. Mishra. I agree with above documentation. Given CT surgeons confirmation, anticoagulation appears reasonable to continue in setting of PE in spite of recent cardiac procedure. Will continue IV drip overnight with plan for transition to oral agent tomorrow. Juan Mishra DO Mar 12, 2017 10:34 Maik Duran DO Mar 13, 2017 13:33
[2017-03-12] MEDS: Heparin 25K Unit/500mL 0.45 NS 25,000 UNIT in IV Premix 1 EACH IV SCH (11:47)
[2017-03-12] MEDS: Cholestyramine Resin Powder 4 Gm Packet PO SCH ×2 (12:38→20:06)
--- NOTE | 2017-03-12 16:11 | NUR ---
Social Work: Initial Assessment D: Per EMR review, pt is a 71 year old female admitted for unstable Angina, plural effusion. Pt is [facility] Medicare Complete PPO. Pt has no LTC insurance or VA benefits. PCP is listed as other physician. NOK is Paloma Lin, dtr, . Advanced directives requested by MOTION PICTURE NARRATOR. RA score is high. 3/8. MOTION PICTURE NARRATOR met with pt and family at bedside. Sw role explained and contact info provided. Pt lives in [place] with family but was discharged from [place] to [facility] several days ago for rehab. Pt wishes to return to [facility] once medically stable for discharge here. MOTION PICTURE NARRATOR received a t/c from Gold at [facility]. He states that they can accept the patient back pending re-authorization from the pt's insurance. MOTION PICTURE NARRATOR will provide access once MD places order. A: Pt who will likely require return to SNF for rehab P: Evolving; Anticipate pt to return to [facility] with Dr. Shook to follow pending authorization from [facility] Medicare and orders. SELMA Batres Addendum: 03/12/17 at 1615 by LISBETH ARRIOLA Amended: Links added.
--- NOTE | 2017-03-12 16:39 | NUR ---
Status Pt c/o increased "prickly" chest pain -03/22. Slightly tacypnic at 22 sats 97% on 2L. Heparin drip off for a PTT of 136. Pt seems anxious. MD notified. Will continue to monitor. SR 70s. Addendum: 03/12/17 at 1659 by DARINEL PARKS RN Pt reassessed by . No new orders. Will continue to monitor. Pt reassured.
[2017-03-13] VITALS (9 sets, daily range): BP systolic 116–147; BP diastolic 63–80; PULSE 74–89; RESP 14–20; O2SAT 93–98
--- NOTE | 2017-03-13 03:15 | NUR ---
PAIN/HEP GTT Pt c/o chest discomfort 06/22, very anxious, gave 1mg IV Dilaudid with good results. Pt's last PTT was 123.4, hep gtt stopped 1 hr, decreased 4units/kg/hr to 11units/kg/hr. A&O, VSS, 2L O2 NC. Pt rested comfortably the remainder of the night. No other issues noted @ this time. Addendum: 03/13/17 at 0534 by CLARENCE VILLANUEVA RN current ptt hep 103.5, decreased by 2 units to 9 units/kg/hr
[2017-03-13 04:56] LABS: Mean Corpuscular Hemoglobin 32.8 pg (27.0-35.0)
[2017-03-13 04:57] LABS: BASOPHILS % (AUTO) 0.4 % (0-3); EOSINOPHILS % (AUTO) 6.4 % (0-5); MONOCYTES % (AUTO) 11.1 % (4-12); NEUTROPHILS % (AUTO) 55.5 % (40-74); Platelet Count 428 bil/L (150-400)
[2017-03-13] MEDS: Heparin 25K Unit/500mL 0.45 NS 25,000 UNIT in IV Premix 1 EACH IV SCH ×2 (06:13→23:17)
[2017-03-13] MEDS: THYROID 162.5 MG PO SCH (07:30)
[2017-03-13] MEDS ORDERED: APIX5TAB PO (07:54)
[2017-03-13] MEDS: Cholestyramine Resin Powder 4 Gm Packet PO SCH ×2 (08:30→20:30)
[2017-03-13] MEDS: Sodium Chloride LOK Flush 10 mL Syringe IVFLUSH SCH ×3 (09:28→22:33)
[2017-03-13] MEDS: Potassium Chloride 20 mEq SR Tablet PO SCH (09:28)
[2017-03-13] MEDS: Pantoprazole 40 mg ER24 Tablet PO SCH (09:29)
--- NOTE | 2017-03-13 09:32 | PCM.PNMED ---
Subjective Date of Service Mar 13, 2017 Subjective Overnight there were no acute events. This morning the patient reports feeling better than yesterday but is still feeling short of breath when getting up to use the bathroom. She denies any fever, chills, hemoptysis, N/V, bleeding. We discussed the plan of care, transitioning to Eliquis after a couple hours without heparin drip. Exam Vital Signs Vital Sign - Last Date Time Temp Pulse Resp B/P Pulse Ox O2 Delivery O2 Flow Rate FiO2 03/13/17 08:31 89 03/13/17 05:41 Supplement Oxygen 03/13/17 04:52 36.9 20 147/77 96 03/13/17 00:11 2.00 Intake and Output 03/12/17 03/12/17 03/13/17 Cumulative From/Thru 15:00 23:00 07:00 03/11/17 15:08 - 03/13/17 05:58 Intake Total 1240 ml 890 ml 3797 ml Output Total 2350 ml 1000 ml 4450 ml Balance -1110 ml -110 ml -653 ml Intake Oral 1240 ml 620 ml 1860 ml IV Total 270 ml 1937 ml Output Urine Total 2350 ml 1000 ml 4450 ml # Voids 2 Exam General: Elderly woman lying in her bed in no acute distress HEENT: NCAT, PERRLA, EOMI. Membranes pink and moist, no erythema/exudates Neck: Supple, no adenopathy, no JVD, no thyromegaly Pulm: Shallow breathing but more effort than previously, bilateral crackles in the lung bases. Nonproductive cough, using pillow on chest during coughing for pain. Chest has well healing scar from recent CABG. Heart: RRR, normal S1-S2 present, no murmur/rubs/gallops Abd: Soft, nontender, nondistended, no rebound or guarding. Bowel sounds active , old midline abdominal scar Extremities: Patient has a left UE scar extending from her antecubital fossa to wrist, a right LE scar extending from the groin to the proximal knee. She is wearing compression stockings without edema, erythema, or tenderness. Neurologic: CN 2-12 intact, A&Ox3. Globally weak in all extremities. Skin: Warm, dry. Scars as noted above. No rashes or bruising. Psychiatric: Anxious, interacts appropriately IVs and Medications Medications Reviewed: Medications were reviewed in detail Lab and Diagnostics Result Diagram: 03/13/17 0450 03/13/17 0450 X-Rays, CTs and MRIs Date of Service: 03/11/17 1505 PROCEDURE: X-RAY CHEST ONE VIEW, PORTABLE INDICATIONS: Chest pain. Surgical changes and devices: Sternotomy and CABG. Lungs and pleura: There is moderate left pleural effusion. No pneumothorax. Left basilar atelectasis. Mediastinum: Mediastinal contours appear normal. Heart size is normal. Bones and chest wall: No suspicious bony lesions. Overlying soft tissues appear unremarkable. IMPRESSION: Moderate left pleural effusion with left basilar atelectasis. Dictated by: Srikanth Jaramillo M.D. on 03/11/2017 at 15:40 Approved by: Srikanth Jaramillo M.D. on 03/11/2017 at 15:42 Date of Service: 03/11/17 1633 PROCEDURE: CT ANGIO CHEST PULMONARY EMBOLISM INDICATIONS: dyspnea, hx of PE; also recent CABG Pulmonary arteries: Pulmonary arteries are normal in size. There is a filling defect identified in the first and second order branches of the right pulmonary artery extending into the right upper, middle and lower lobes. There are several areas of tertiary branch heterogeneous filling appearance also identified on the left. Lungs and pleura: There are mild bilateral pleural effusions, left greater than right, with superimposed consolidations most prominent on the left. Overall appearance of increased pulmonary vascularity is present. Mediastinum: Heart size is normal, without pericardial effusion. No mediastinal or hilar adenopathy. Thoracic aorta is normal in caliber and enhancement. Esophagus is normal in caliber, without hiatal hernia. Bones and chest wall: No suspicious bony lesions. Ribs and thoracic spine appear intact throughout. Thyroid gland there is prominent low attenuation focus in completely visualize within the right thyroid lobe. No axillary or supraclavicular adenopathy. Abdomen: Visualized upper abdominal solid organs appear normal in the early arterial phase of enhancement. IMPRESSION: 1. Filling defects within the first and second order branches of the right pulmonary artery extending into the right upper, middle and lower lobes. In addition, there are scattered areas of more distal filling defects identified within branches of the left pulmonary artery extending into the upper and lower lobes. Findings are consistent with emboli. 2. Mild bilateral pleural effusions with superimposed consolidation on the left. The latter may be reflective of developing pneumonia and/or atelectasis. The above findings were discussed with Dr. Ike Juarez on 03/11/17 at 6:30 PM. Dictated by: Nunu Cerna M.D. on 03/11/2017 at 18:26 Approved by: Nunu Cerna M.D. on 03/11/2017 at 18:31 Assessment & Plan Patient is a 71 year old woman with recent CABG done 10 days ago with initial concern was for acute coronary syndrome. She was found to have bilateral PE on CT angiogram. She is admitted to be on a heparin drip. Pulmonary Embolism, acute, Present on Admission, improving -Pt reports being more comfortable at rest, still SOB when exerting herself - EKG 03/12 virtually unchaged - Troponin negative x3 - CXR: Moderate left pleural effusion with left basilar atelectasis. - CT Chest: Filling defects within the first and second order branches of the right pulmonary artery extending into the right upper, middle and lower lobes. In addition, there are scattered areas of more distal filling defects identified within branches of the left pulmonary artery extending into the upper and lower lobes. Findings are consistent with emboli. Mild bilateral pleural effusions with superimposed consolidation on the left. The latter may be reflective of developing pneumonia and/or atelectasis. -Procalcitonin normal, unlikely superimposed pneumonia -Continue telemetry -Daily INR/aPTT/PT - Patient is taking by mouth Dilaudid for her recent CABG, will continue IV with IV Dilaudid while in house given her PE. We will titrate pain medication appropriately. -Talked with both her oncologist (Otoniel) and CT surgeon (Wilfredo) who agreed with eliquis as an outpatient after 1-2 days of heparin drip -Will transition to Eliquis after 1-2h off the heparin drip today Anemia, macrocytic hypochromic, chronicity unknown, present on admission, active - Pt asymptomatic, no dizziness/lightheadedness, no bleeding - H&H stable around ~9/ ~28 since admission, MCV 104, MCHC 31.4 -Trend H/H, consider transfusion if she becomes symptomatic History of coronary artery disease with recent CABG 10 days ago, present on admission, improving - EKG on 03/12 unchanged, chest pain pleuritic in nature - Negative troponin x3 - Her personal CT surgeon, Dr. 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 Cortez at the [facility] Stage III renal failure, presumed stable - Pt sees Dr. Oneill nephrology at [facility] - Creatinine 0.98 on admission fell to 0.89 - Continue to trend daily -Avoid nephrotoxic drugs History of coronary artery disease status post CABG on 03/02/2017, active - [facility], automation software engineer is Dr. Pedraza -[facility], CT surgeon Dr. 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 Frederick - We will continue to hold Gleevec until patient restarted by her oncologist Hypothyroidism, presumed stable - states she has not been having night sweats since stopping her nature thyroid - Continue home nature thyroid Disposition: The patient will likely discharge over the weekend depending on her response to the transition between heparin and eliquis and the complexity of her work up, treatment plan, and risk of adverse events. CODE STATUS: Full code PCP: Rachael Montes DVT PE prophylaxis: Patient currently on a heparin drip for PE Contact: Philip fall [phone], Paloma daughter [phone] Pain Evaluation: Adequate Pain Control GI Prophylaxis: Proton Pump Inhibitor (protonix) VTE Prophylaxis: Other (on heparin drip for PE) VTE Mechanical Devices: Anti-Embolic stockings Resuscitation Status: CPR: Attempt Resuscitation Time spent 30 minutes Attending Statement Patient was seen and examined at bedside in addition I directly supervised provided by Resident physician, Dr. Misrha. I agree with above documentation. Juan Mishra DO Mar 13, 2017 09:32 Maik Duran DO Mar 13, 2017 14:25
--- NOTE | 2017-03-13 12:18 | NUR ---
Called to pt. room. Pt. has Home O2 with [facility]. Pt. O2 tank from [facility] empty. Pt. given [employer] E cylinder with 2000 psi for discharge. [facility] notified.
[2017-03-13] MEDS: HYDROcodone-APAP 10-325 mg PO PRN ×3 (12:32→21:10)
[2017-03-13] MEDS: Heparin 5,000 Unit/mL Inj IVPUSH PRN ×2 (14:00→21:19)
--- NOTE | 2017-03-13 18:04 | NUR ---
BM Patient c/o no BM x5 days. PO bowel meds given with no effect. Glycerin suppository gieven this afternoon with no results as of yet. MD aware, will order enema PRN for this evening.
[2017-03-14] MEDS: HYDROmorphone 0.5 mg/0.5 mL iSecure Syringe IVPUSH PRN (01:39)
[2017-03-14 04:03] VITALS: BP 121/77; PULSE 77; RESP 18; O2SAT 95
--- NOTE | 2017-03-14 05:57 | NUR ---
HEP GTT/PAIN Hep gtt @ 11uunits/kg/hr, Pt had IV Dilaudid for 9/10 chest pain after getting up to the [facility], PO Dilaudid was given later in the AM with 7/10 chest pain again after going to [facility]. No other issues noted @ this time.
[2017-03-14] MEDS: THYROID 162.5 MG PO SCH (07:56)
[2017-03-14 08:00] VITALS: BP 116/82; PULSE 79; RESP 15; O2SAT 98
[2017-03-14] MEDS: Cholestyramine Resin Powder 4 Gm Packet PO SCH (08:30)
[2017-03-14 08:32] VITALS: PULSE 86
--- NOTE | 2017-03-14 09:22 | NUR ---
Social Work Note: Continued Discharge Planning Data& Assessment: Per MD order, LAZARO started the process of seeing what pt coverage for Elequis might be. LAZARO left voicemail for Melissa from [facility] yesterday afternoon to to inquire with their pharmacy about cost. LAZARO spoke with Melissa from [facility] this morning who explained due to the hol weekend, she is unsure if she will be able to obtain coverage information for the medication, but this will not be a barrier to accepting the pt as Elequis is a commonly prescribed anticoagulant for many of their pt's. Melissa from [facility] did say she was unsure about obtaining insurance authorization over this holiday weekend as well if pt ended up being medically ready for discharge today. LAZARO to follow up with Melissa from [facility] about medication cost and readiness for discharge. Plan: Anticipated discharge to [facility] when medically ready pending insurance authorization. LAZARO to follow up with Melissa from [facility] about medication cost and readiness for discharge. SELMA Magallanes Addendum: 03/14/17 at 1112 by INDIO MARR SS Per MD in morning rounds, pt is not medically ready for discharge at this time. Per MD pt remains symptomatic and pt has not expressed feeling like she has medically improved. Per pt may not be medically ready for discharge for another 1-2 days. LAZARO notified Melissa from [facility] but did emphasize we would still like them to check with their pharmacy for the anticoagulant coverage. LAZARO to continue to follow. SELMA Magallanes
[2017-03-14 09:25] LABS: BASOPHILS % (AUTO) 0.2 % (0-3); EOSINOPHILS % (AUTO) 1.1 % (0-5); MONOCYTES % (AUTO) 6.2 % (4-12); Mean Corpuscular Hemoglobin 32.8 pg (27.0-35.0); Mean Corpuscular Volume 102.2 fL (81-100); NEUTROPHILS % (AUTO) 84.2 % (40-74); Platelet Count 430 bil/L (150-400)
[2017-03-14] MEDS: Pantoprazole 40 mg ER24 Tablet PO SCH (09:43)
[2017-03-14] MEDS: HYDROcodone-APAP 10-325 mg PO PRN ×2 (09:44→13:01)
[2017-03-14] MEDS: Potassium Chloride 20 mEq SR Tablet PO SCH (09:44)
[2017-03-14] MEDS: Sodium Chloride LOK Flush 10 mL Syringe IVFLUSH SCH (09:45)
--- NOTE | 2017-03-14 11:12 | DRSVH ---
PROCEDURE: X-RAY CHEST ONE VIEW, PORTABLE ([id number]) INDICATIONS: shortness of breath/PE TECHNIQUE: One view of the chest was acquired. COMPARISON: [facility], CT, CT ANGIO CHEST PE, 03/11/2017, 17:50. [facility] , CR, XR CHEST 1VW (PORTABLE), 03/11/2017, 15:13. FINDINGS: Surgical changes and devices: Sternotomy wires, prior presumed CABG. Lungs and pleura: No pleural effusions or pneumothorax. Lungs are abnormal with persistent consolid ation left lower lobe and a CT documented subpulmonic left effusion, stable over time. Mediastinum: Mediastinal contours appear normal. Heart size is normal. Bones and chest wall: No suspicious bony lesions. Overlying soft tissues appear unremarkable. IMPRESSION: No regional climate change analyst time, left lower lobe consolidation and subpulmonic left effusion. Prior presumed CABG. Dictated by: Jay Dudley M.D. on 03/14/2017 at 11:09 Approved by: Jay Dudley M.D. on 03/14/2017 at 11:10
[2017-03-14] MEDS ORDERED: Vancomycin Dose per Pharmacist XX SCH (11:15)
--- NOTE | 2017-03-14 11:37 | PCM.PNMED ---
Subjective Date of Service Mar 14, 2017 Subjective Overnight events: Reports some 9/10 chest pain with some relief with PO dilaudid to 7/10 this am. This morning the patient reports some minor reproducible right chest pain and Left "shoulder-blade pain"and is still mildly short of breath with ambulation and activity. Denies fever, chills, nausea, vomiting, abdominal pain, constipation, diarrhea. Exam Vital Signs Vital Sign - Last Date Time Temp Pulse Resp B/P Pulse Ox O2 Delivery O2 Flow Rate FiO2 03/14/17 05:51 Supplement Oxygen 03/14/17 04:03 77 18 121/77 95 03/13/17 23:12 37.3 03/13/17 16:37 2.00 Intake and Output 03/13/17 03/13/17 03/14/17 Cumulative From/Thru 15:00 23:00 07:00 03/11/17 15:08 - 03/14/17 06:34 Intake Total 1410 ml 1055 ml 6262 ml Output Total 2750 ml 650 ml 7850 ml Balance -1340 ml 405 ml -1588 ml Intake Oral 1140 ml 755 ml 3755 ml IV Total 270 ml 300 ml 2507 ml Output Urine Total 2750 ml 100 ml 7300 ml Urine/Stool Mix 550 ml 550 ml # Voids 1 3 Exam General: Elderly woman lying in her bed in mild distress with cough, NC in place. HEENT: NCAT, PERRLA, EOMI. Membranes pink and moist, no erythema/exudates Neck: Supple, no adenopathy, no JVD, no thyromegaly Pulm: Shallow breathing but more effort than previously, bilateral crackles in the lung bases. Nonproductive cough, using pillow on chest during coughing for pain. Chest has well healing scar from recent CABG. Heart: RRR, normal S1-S2 present, no murmur/rubs/gallops Abd: Soft, nontender, nondistended, no rebound or guarding. Bowel sounds active , old midline abdominal scar Extremities: Patient has a left UE scar extending from her antecubital fossa to wrist, a right LE scar extending from the groin to the proximal knee. She is wearing compression stockings without edema, erythema, or tenderness. Neurologic: CN 2-12 intact, A&Ox3. Globally weak in all extremities. Skin: Warm, dry. Scars as noted above. No rashes or bruising. Psychiatric: Anxious, interacts appropriately IVs and Medications Medications Reviewed: Medications were reviewed in detail Lab and Diagnostics Result Diagram: 03/13/17 04503/13/17 0450 X-Rays, CTs and MRIs Date of Service: 03/11/17 1505 PROCEDURE: X-RAY CHEST ONE VIEW, PORTABLE INDICATIONS: Chest pain. Surgical changes and devices: Sternotomy and CABG. Lungs and pleura: There is moderate left pleural effusion. No pneumothorax. Left basilar atelectasis. Mediastinum: Mediastinal contours appear normal. Heart size is normal. Bones and chest wall: No suspicious bony lesions. Overlying soft tissues appear unremarkable. IMPRESSION: Moderate left pleural effusion with left basilar atelectasis. Dictated by: Srikanth Jaramillo M.D. on 03/11/2017 at 15:40 Approved by: Srikanth Jaramillo M.D. on 03/11/2017 at 15:42 Date of Service: 03/11/17 1633 PROCEDURE: CT ANGIO CHEST PULMONARY EMBOLISM INDICATIONS: dyspnea, hx of PE; also recent CABG Pulmonary arteries: Pulmonary arteries are normal in size. There is a filling defect identified in the first and second order branches of the right pulmonary artery extending into the right upper, middle and lower lobes. There are several areas of tertiary branch heterogeneous filling appearance also identified on the left. Lungs and pleura: There are mild bilateral pleural effusions, left greater than right, with superimposed consolidations most prominent on the left. Overall appearance of increased pulmonary vascularity is present. Mediastinum: Heart size is normal, without pericardial effusion. No mediastinal or hilar adenopathy. Thoracic aorta is normal in caliber and enhancement. Esophagus is normal in caliber, without hiatal hernia. Bones and chest wall: No suspicious bony lesions. Ribs and thoracic spine appear intact throughout. Thyroid gland there is prominent low attenuation focus in completely visualize within the right thyroid lobe. No axillary or supraclavicular adenopathy. Abdomen: Visualized upper abdominal solid organs appear normal in the early arterial phase of enhancement. IMPRESSION: 1. Filling defects within the first and second order branches of the right pulmonary artery extending into the right upper, middle and lower lobes. In addition, there are scattered areas of more distal filling defects identified within branches of the left pulmonary artery extending into the upper and lower lobes. Findings are consistent with emboli. 2. Mild bilateral pleural effusions with superimposed consolidation on the left. The latter may be reflective of developing pneumonia and/or atelectasis. The above findings were discussed with Dr. Ike Juarez on 03/11/17 at 6:30 PM. Dictated by: Nunu Cerna M.D. on 03/11/2017 at 18:26 Approved by: Nunu Cerna M.D. on 03/11/2017 at 18:31 Assessment & Plan Patient is a 71 year old woman with recent CABG done 10 days ago with initial concern was for acute coronary syndrome. She was found to have bilateral PE on CT angiogram. She is admitted to be on a heparin drip. Pulmonary Embolism, acute, Present on Admission, improving -Pt reports being more comfortable at rest, still SOB when exerting herself - EKG 03/12 virtually unchaged - Troponin negative x3 - CXR: Moderate left pleural effusion with left basilar atelectasis. - CT Chest: Filling defects within the first and second order branches of the right pulmonary artery extending into the right upper, middle and lower lobes. In addition, there are scattered areas of more distal filling defects identified within branches of the left pulmonary artery extending into the upper and lower lobes. Findings are consistent with emboli. Mild bilateral pleural effusions with superimposed consolidation on the left. The latter may be reflective of developing pneumonia and/or atelectasis. -Procalcitonin normal, unlikely superimposed pneumonia -Continue telemetry -Daily INR/aPTT/PT - Patient is taking by mouth Dilaudid for her recent CABG, will continue IV with IV Dilaudid while in house given her PE. We will titrate pain medication appropriately. -Talked with both her oncologist (Otoniel) and CT surgeon (Wilfredo) who agreed with eliquis as an outpatient after 1-2 days of heparin drip -Will transition to Eliquis after 1-2h off the heparin drip today Anemia, macrocytic hypochromic, chronicity unknown, present on admission, active - Pt asymptomatic, no dizziness/lightheadedness, no bleeding - H&H stable around ~9/ ~28 since admission, MCV 104, MCHC 31.4 -Trend H/H, consider transfusion if she becomes symptomatic History of coronary artery disease with recent CABG 10 days ago, present on admission, improving - EKG on 03/12 unchanged, chest pain pleuritic in nature - Negative troponin x3 - Her personal CT surgeon, Dr. 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 Cortez at the [facility] Stage III renal failure, presumed stable - Pt sees Dr. Oneill nephrology at [facility] - Creatinine 0.98 on admission fell to 0.89 - Continue to trend daily -Avoid nephrotoxic drugs History of coronary artery disease status post CABG on 03/02/2017, active - [facility], supervisor self service store is Dr. Pedraza -[facility], CT surgeon Dr. 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 Frederick - We will continue to hold Gleevec until patient restarted by her oncologist Hypothyroidism, presumed stable - states she has not been having night sweats since stopping her nature thyroid - Continue home nature thyroid Disposition: The patient will likely discharge over the weekend depending on her response to the transition between heparin and eliquis and the complexity of her work up, treatment plan, and risk of adverse events. CODE STATUS: Full code PCP: Rachael Montes DVT PE prophylaxis: Patient currently on a heparin drip for PE Contact: Philip son [phone], Paloma daughter [phone] Pain Evaluation: Adequate Pain Control GI Prophylaxis: Proton Pump Inhibitor (protonix) VTE Prophylaxis: Other (on heparin drip for PE) VTE Mechanical Devices: Anti-Embolic stockings Resuscitation Status: CPR: Attempt Resuscitation Time spent 35 minutes Attending Statement I have seen and evaluated the patient at bedside in addition to directly supervising care provided by resident physician. I agree with above documentation by Dr Ryan on 03/14/2017. ASIF RYAN DO Mar 14, 2017 06:37 Maik Duran DO Mar 14, 2017 18:39
[2017-03-14 11:55] VITALS: BP 116/70; PULSE 74; RESP 20; O2SAT 96
[2017-03-14] MEDS ORDERED: Vancomycin Serum Trough XX ONE (11:55)
--- NOTE | 2017-03-14 11:58 | PCM.PHAPRO ---
Progress New onset sharp pleuritic Chest pain worsened by deep breathing, proximal palpitation secondary to her A. fib, dyspnea and shortness of breath with exertion Patient is an 71 y.o. female receiving vancomycin empirically. Concurrent abx include: cefepime. WBC count is 20 and the patient is afebrile. Patient is 99kg, 72 inches tall with a SCr of 0.98 mg/dL-- estimated CrCl of 80 mL/min. Based on patient parameters vancomycin will be dosed at 1500 q12. Trough will be drawn on 03/16 @0100 before the 4th dose. Pharmacy will follow daily and adjust as appropriate. Thank you for the consult in the care of this patient. RTM PharmD Ramy Franco Pharm.D Mar 14, 2017 11:57
--- NOTE | 2017-03-14 13:11 | DRSVH ---
[facility] [address] [place] [address] Echocardiogram Report Name: NATE MCGOVERN Study Date: 03/14/2017 Height: 72 in Hospital Exam Location: [facility] Weight: 220 lb Gender: Female BSA: 2.2 m2 : 1945 Age: 71 yrs BP: 116/82 mmHg Reason For Study: Pulmonary- Embolism Ordering Physician: Performed By: Christofer Aldrich Interpretation Summary Normal sinus rhythm. Normal LV size; mild concentric LVH; normal wall motion and LV systolic function. EF is 60-65% Anterior mitral valve leaflet is normal; posterior leaflet is not well seen. No significant regurgitation based on color flow Doppler. Aortic valve leaflets are normal. No regurgitation or stenosis. Tricuspid valve leaflets are not visualized; pulmonic valve leaflets are not visualized. There is medium size (1.6 cm thickness) anterior echogenic mass extending into the apical space; it is most consistent with post-op thrombus. There is very large left pleural effusion. No prior study available for comparison. Procedure: A two-dimensional transthoracic echocardiogram with color flow and Doppler was performed. The study quality was technically difficult. Patient was supine during exam. There is no prior echocardiogram noted for this patient. The patient was in normal sinus rhythm during the exam. Left Ventricle: Left ventricular wall thickness is mildly increased. The left ventricular cavity is small. Mitral Valve: The mitral valve is not well visualized. Aortic Valve: The aortic valve is not well visualized. Tricuspid Valve: The tricuspid valve is not well visualized. Pulmonary artery pressures cannot be estimated because of the lack of a measurable TR jet velocity. Pulmonic Valve: The pulmonic valve is not well seen, but is grossly normal. There is a trace or physiologic amount of pulmonic regurgitation. Great Vessels: The ascending aorta is mildly enlarged. The IVC is dilated (diameter is greater than 2.1 cm) and it collapses less than 50% with a sniff. This suggests a high right atrial pressure of 15 mm Hg. Pericardium/ Pleura There is a very large left-sided pleural effusion. Doppler Measurements & Calculations MV E max dave: 99.7 cm/sec MV E/A: 1.4 MV dec time: 0.25 sec MV A max dave: 70.1 cm/sec Reading Physician:01:10 PM
[2017-03-14] MEDS ORDERED: Vancomycin Inj 1,750 MG in 0.9% Sodium Chloride 500 ML IV ONE (13:30)
[2017-03-14] MEDS ORDERED: Cefepime Inj 2,000 MG in Dextrose 5% Minibag Plus 100 ML IV SCH (13:36)
--- NOTE | 2017-03-14 13:42 | CONS ---
[address] [address] CONSULTATION REPORT PATIENT: NATE MCGOVERN : 1945 MR#: [id number] ADMIT: 03/11/2017 JOB ID: [id number] DATE OF SERVICE: 03/14/2017 CHIEF COMPLAINT: Shortness of breath. HISTORY OF PRESENT ILLNESS: The patient is a delightful 71-year-old woman with multiple cardiovascular conditions including surgical disease status post CABG March 02, 2017. She is closely monitored by her cardiothoracic surgeon, Dr. Villalobos, and her cardiac her mergers and acquisitions banker, Dr. Jabari Pedraza. Briefly she was hospitalized at [facility] March 02 through March 09 recovering from her four-vessel CABG. She was admitted to acute inpatient rehab. Unfortunately she decompensated and developed severe shortness of breath. She was admitted to [facility] March 11 and was diagnosed with moderate left-sided pleural effusion and additionally with pulmonary embolism both right and left-sided. Her chest x-ray showed moderate left-sided pleural effusion. Echocardiogram was ordered and is pending. So far, in the course of her hospitalization. She had no hypotension and her O2 requirement was managed via 2 L nasal cannula. Today Cardiology is consulted to assist with management because patient has been getting worsening shortness of breath and weakness, and she reports increased work of breathing. PAST MEDICAL HISTORY: 1. Coronary artery disease. She had worsening dyspnea on exertion. Cardiac catheterization demonstrated surgical disease. Her surgical anatomy is ALVARADO to LAD, SVG to RCA, SVG to D1, and radial to OM. 2. She has a history of venous thromboembolism after prior surgeries when she had knee surgery. She has not been on oral anticoagulation postop. 3. 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 She is closely monitored by oncologist Dr. Frederick. She had been on Gleevec, but this medication was discontinued in the preoperative period and the plan is to restart April 01, 2017. 4. Hypothyroidism. Managed with Nature's thyroid supplement. 5. Obstructive sleep apnea, on CPAP. FAMILY HISTORY: Mother with coronary artery disease and history of liver cancer. Grandmother with breast cancer and paternal grandmother with brain cancer. SOCIAL HISTORY: The patient does not smoke. Does not drink alcohol. She lives with family. ALLERGIES: 1. SOY. 2. WARFARIN. 3. TAPE. 4. STATINS which caused immediate muscle weakness, dizziness, and vomiting. 5. ZETIA which causes severe headaches. CURRENT MEDICATIONS: In the hospital: 1. Aspirin 81 mg daily. 2. Cholestyramine resin. 3. Metoprolol tartrate 50 twice a day. 4. Lasix 40 mg daily. 5. Potassium chloride 40 mEq daily. 6. She takes her home thyroid medication. She manages it herself. 7. Dilaudid as needed for pain. 8. Heparin drip per ACS protocol. REVIEW OF SYSTEMS: Shortness of breath. Increased work of breathing. Otherwise 10-point review of systems is negative. PHYSICAL EXAMINATION: Temperature 36.7, blood pressure 116/82, pulse 77, up to 86 beats per minute. She is satting 98% on room air. Overweight woman in some respiratory distress. Eyes: No scleral icterus. Neck is supple. No lymphadenopathy. No carotid bruits. Heart normal S1, S2. There is a 2/6 systolic ejection murmur right upper sternal border and 2/6 holosystolic murmur at the apex. Lungs absent breath sounds in the lower half of the left lung mack and diminished breath sounds in the upper half of the left lung field. Abdomen is soft, positive bowel sounds. Extremities support hose are on and no edema is present. DIAGNOSTIC STUDIES: Her EKG shows normal sinus rhythm, normal axis, occasional PAC, right bundle branch block and no significant ST-segment changes. There is poor R-wave progression in precordial leads which in the right clinical setting could be due to a prior anterior infarct. Chest x-ray, personally reviewed, shows moderate left-sided pleural effusion that is a little bit worse compared to prior 2017. CT PE protocol I personally reviewed, as well and I am impressed by the size of her pleural effusion. She has moderate atherosclerotic plaquing in her aorta and there are bilateral pulmonary emboli present, but no evidence of saddle embolism. Of note, echocardiogram is not yet done, but is ordered and lower extremity ultrasound is not yet done but has been ordered to gauge the burden in her legs. Labs reviewed. She is anemic, but it is better than it was in the hospital. Now she has a white count of 20,000. Her platelet count is 430. Her MCV is elevated at 102. She has a left shift that is new from yesterday. Transaminases are normal. TSH is elevated on admission. ASSESSMENT AND PLAN: This is a 71-year-old woman with history of coronary disease status post CABG/March 02, discharged from [place] February 2017. Surgery it sounds like was complicated by bilateral pulmonary emboli. She has a history of venous thromboembolism in the past as well as left-sided pleural effusion that may now have gotten infected and there is a good chance now she has pneumonia as a result. The plan for this patient is complex and multifaceted. 1. Pulmonary embolism. Continue heparin drip. She is not ready to be transitioned to warfarin yet because there is a good chance she will need a thoracentesis. 2. Left-sided pleural effusion. I recommend thoracentesis both diagnostic and therapeutic. This is a cancer patient with gastrointestinal stromal tumor and while of course it is easy to assume that the fluid collection is postop. We have to exclude malignant involvement. We have to exclude active infection after surgery. 3. Murmur. I am auscultating mitral regurgitation murmur. Recommended repeating echocardiogram to gauge wall motion LV systolic function. 4. Elevated white count. treat for hospital acquired pneumonia Thank you very much for the opportunity to participate in this patient's treatment. COLIN
--- NOTE | 2017-03-14 15:05 | NUR ---
Social Work Note: Transfer Data& Assessment: Per MD pt is requiring a transfer to [facility]. SW met with pt and pt daughter to check in and assess for any unmet needs. Pt had concerns about her bill, SW provided a financial assistance advisor application. LAZARO notified Melissa from [facility] of pt transfer. Pt and pt daughter denies any other needs. No other discharge needs identified. Plan: Pt is transferring to [place]. Pt and pt daughter denies any other needs. No other discharge needs identified. SELMA Magallanes
--- NOTE | 2017-03-14 15:30 | NUR ---
Transfer to [facility] Pt transferred to [facility] per Dr Johnson for post CABG surgical complications. Pt A&O x3, transferred in stable condition. Able to walk from bed to [facility] with minimal assistance. Pt using splint pillow for coughing and movement. Afebrile, BP stable one-teens over seventies. TELE SR 70-80s. Report called to Lyric SMITH.
[2017-03-14] MEDS ORDERED: Cefepime Inj 1,000 MG in Dextrose 5% Minibag Plus 50 ML IV SCH (20:30)
[2017-03-15] MEDS ORDERED: Vancomycin Inj 1,500 MG in 0.9% Sodium Chloride 500 ML IV SCH (02:00)
--- NOTE | 2017-03-15 13:55 | PCM.DC.MED ---
Discharge Summary Date of Service Mar 15, 2017 Dates of Hospitalization Date of Hospital Admission Mar 11, 2017 at 19:37 Date of Discharge: Mar 14, 2017 Providers: Admitting Physician: Maik Duran DO Primary Care Physician: Other,Physician Attending Physician: Maik Duran DO Diagnosis at Time of Discharge Diagnosis at Time of Discharge Pulmonary Embolism Anemia, macrocytic hypochromic History of coronary artery disease with recent CABG 10 days ago History of PE/DVT History of decrease pulmonary function secondary to prior PE Stage III renal failure History of coronary artery disease status post CABG on 03/02/2017 History of GIST tumor status post resection 01/01/2016, presumed stable Hypothyroidism, presumed stable Disposition: Procedures XRay, CTs & MRIs Date of Service: 03/11/17 1505 PROCEDURE: X-RAY CHEST ONE VIEW, PORTABLE INDICATIONS: Chest pain. Surgical changes and devices: Sternotomy and CABG. Lungs and pleura: There is moderate left pleural effusion. No pneumothorax. Left basilar atelectasis. Mediastinum: Mediastinal contours appear normal. Heart size is normal. Bones and chest wall: No suspicious bony lesions. Overlying soft tissues appear unremarkable. IMPRESSION: Moderate left pleural effusion with left basilar atelectasis. Dictated by: Srikanth Jaramillo M.D. on 03/11/2017 at 15:40 Approved by: Srikanth Jaramillo M.D. on 03/11/2017 at 15:42 Date of Service: 03/11/17 1633 PROCEDURE: CT ANGIO CHEST PULMONARY EMBOLISM INDICATIONS: dyspnea, hx of PE; also recent CABG Pulmonary arteries: Pulmonary arteries are normal in size. There is a filling defect identified in the first and second order branches of the right pulmonary artery extending into the right upper, middle and lower lobes. There are several areas of tertiary branch heterogeneous filling appearance also identified on the left. Lungs and pleura: There are mild bilateral pleural effusions, left greater than right, with superimposed consolidations most prominent on the left. Overall appearance of increased pulmonary vascularity is present. Mediastinum: Heart size is normal, without pericardial effusion. No mediastinal or hilar adenopathy. Thoracic aorta is normal in caliber and enhancement. Esophagus is normal in caliber, without hiatal hernia. Bones and chest wall: No suspicious bony lesions. Ribs and thoracic spine appear intact throughout. Thyroid gland there is prominent low attenuation focus in completely visualize within the right thyroid lobe. No axillary or supraclavicular adenopathy. Abdomen: Visualized upper abdominal solid organs appear normal in the early arterial phase of enhancement. IMPRESSION: 1. Filling defects within the first and second order branches of the right pulmonary artery extending into the right upper, middle and lower lobes. In addition, there are scattered areas of more distal filling defects identified within branches of the left pulmonary artery extending into the upper and lower lobes. Findings are consistent with emboli. 2. Mild bilateral pleural effusions with superimposed consolidation on the left. The latter may be reflective of developing pneumonia and/or atelectasis. The above findings were discussed with Dr. Ike Juarez on 03/11/17 at 6:30 PM. Dictated by: Nunu Cerna M.D. on 03/11/2017 at 18:26 Approved by: Nunu Cerna M.D. on 03/11/2017 at 18:31 Brief History Patient is a 71 year old woman with recent CABG done 10 days ago at [facility], with initial concern was for acute coronary syndrome, however she was found to have bilateral PE on CT angiogram. She is admitted to be on a heparin drip and subsequently transferred to [facility] under the care of Dr. Eric Garza with cardio thoracic surgery. Patient is a 71 Y/O F with a hx of stage 3 renal failure, hx of DVT and PE with residual decreased pulmonary function since her her PE in 2013, history of paroxysmal A. fib with rates in the 150s, hx of GIST tumor s/p resection in December 2015 and on Gleevec therapy, hypothyroidism on nature thyroid, who presented to the ED from [facility] where patient had been active in cardiac rehabilitation status post CABG on 03/02/17 at [facility], with complaint of severe sharp pleuritic right sided chest pain rated 8 out of 10 onset 1900 hrs last night. Patient is unable to tell if this pain is similar to her previous PE experience secondary to her recent thoracic surgery. The patient states that her chest pain is worse with deep breathing and with exertion. Pain is 8 out of 10 at maximum and currently. Associated symptoms include shortness of breath, cough that is nonproductive, and intermittent paroxysmal A. fib that causes her to have palpitations. Received (4)81 mg aspirin and 2 nitros at [facility] and says that this only caused her to get a headache but did not relieve her pain. Note this is a inconsistency with the ED H&P for patient reportedly stated she had a decrease in her pain with nitroglycerin. Patient is somewhat a vague poor historian simply because of her discomfort. She becomes impatient with questioning. Prema has been active with her cardiac therapy at [facility] and states that she started to feel the chest pain start after having completed her therapy yesterday. She states that she initially thought it was muscle skeletal but given her history of PE decided to come to the ED. Patient states she has been actively using her incentive spirometry and had been registering 1999 only to have it fall to a maximum of 800 this morning. In the ED: Due to the severity of complexity of patient's problems, patient was transferred to [facility] in [place] due to complications following a prior procedure at [place]. Hospital Course Patient is a 71 year old woman with recent CABG done 10 days ago with initial concern was for acute coronary syndrome. She was found to have bilateral PE on CT angiogram. She is admitted to be on a heparin drip. Pulmonary Embolism, acute Anemia, macrocytic hypochromic History of coronary artery disease with recent CABG 10 days ago History of PE/DVT History of decrease pulmonary function secondary to prior PE Stage III renal failure, presumed stable History of coronary artery disease status post CABG on 03/02/2017 History of GIST tumor status post resection 01/01/2016 Hypothyroidism Disposition: Patient is a 71 year old woman with recent CABG done 10 days ago at [facility], with initial concern was for acute coronary syndrome, however she was found to have bilateral PE on CT angiogram. She is admitted to be on a heparin drip and subsequently transferred to [facility] under the care of Dr. Eric Garza with cardio thoracic surgery. Exam Vital Signs (Last) Date Time Temp Pulse Resp B/P Pulse Ox O2 Delivery O2 Flow Rate FiO2 03/14/17 11:55 36.8 74 20 116/70 96 Nasal Cannula 1.00 Exam General: Elderly woman lying in her bed in mild distress with cough, NC in place. HEENT: NCAT, PERRLA, EOMI. Membranes pink and moist, no erythema/exudates Neck: Supple, no adenopathy, no JVD, no thyromegaly Pulm: Shallow breathing but more effort than previously, bilateral crackles in the lung bases. Nonproductive cough, using pillow on chest during coughing for pain. Chest has well healing scar from recent CABG. Heart: RRR, normal S1-S2 present, no murmur/rubs/gallops Abd: Soft, nontender, nondistended, no rebound or guarding. Bowel sounds active , old midline abdominal scar Extremities: Patient has a left UE scar extending from her antecubital fossa to wrist, a right LE scar extending from the groin to the proximal knee. She is wearing compression stockings without edema, erythema, or tenderness. Neurologic: CN 2-12 intact, A&Ox3. Globally weak in all extremities. Skin: Warm, dry. Scars as noted above. No rashes or bruising. Psychiatric: Anxious, interacts appropriately Test 03/11/17 15:10 03/11/17 17:21 03/11/17 22:28 03/12/17 03:30 D-Dimer 5.72mg/L FEU (<0.50) Pro-B-Type Natriuretic Peptide 2107pg/mL (0-301) Urine Color Straw (YELLOW) Urine Appearance Clear (CLEAR,HAZY) Urine pH 7.5 (5.0-8.0) Urine Specific [place] 1.010 (1.003-1.035) Urine Protein Negativemg/dL (NEG,TRACE) Urine Glucose (UA) Negativemg/dL (NEGATIVE) Urine Ketones Negativemg/dL (NEGATIVE) Urine Occult Blood Negative (NEGATIVE) Urine Nitrite Negative (NEGATIVE) Urine Bilirubin Negative (NEGATIVE) Urine Urobilinogen Normalmg/dL (NORMAL) Urine Leukocyte Esterase Negative (NEGATIVE) Urine RBC 0-2/hpf (0-2) Urine WBC 0-5/hpf (0-5) Urine Epithelial Cells Occasional/hpf (NONE-MOD) Urine Crystals None seen (NONE SEEN) Urine Bacteria None/hpf (NONE-FEW) Urine Hyaline Casts None/lpf (NONE) Urine Granular Casts None seen (NONE SEEN) Urine Waxy Casts None seen (NONE SEEN) Urine Red Blood Cell Casts None seen (NONE SEEN) Urine White Blood Cell Casts None seen (NONE SEEN) Urine Mucus None seen (None Seen) Urine Trichomonas None seen (NONE SEEN) Urine Yeast None (NONE SEEN) Urinalysis Comment None Urine Culture Reflexed Not indicated Hold Urine Received (Received) Hemoglobin A1c 5.3% (4.8-5.6) Magnesium Level 1.7mg/dL (1.6-2.6) Thyroid Stimulating Hormone (TSH) 4.970uIU/mL (0.450-4.500) Troponin T 0.010ug/L (0.0-0.011) Triglycerides Level 122mg/dL (0-149) Cholesterol Level 116mg/dL (100-199) LDL Cholesterol, Calculated 51.600mg/dL (0-99) VLDL Cholesterol 24.400mg/dL HDL Cholesterol 40mg/dL (>39) Cholesterol/HDL Ratio 2.90 (0.0-4.4) Test 03/14/17 03:10 03/14/17 09:15 03/14/17 11:12 Activated Partial Thromboplast Time 159.9sec (22.8-33.0) White Blood Count 20.2th/mm3 (3.8-10.1) Red Blood Count 2.74mil/mm3 (3.90-5.20) Hemoglobin 9.0g/dL (12.0-15.6) Hematocrit 28.0% (35.0-46.0) Mean Corpuscular Volume 102.2fL (81-100) Mean Corpuscular Hemoglobin 32.8pg (27.0-35.0) Mean Corpuscular Hemoglobin Concent 32.1% (32.0-37.0) Red Cell Distribution Width 15.9% (12.3-15.4) Platelet Count 430bil/L (150-400) Neutrophils (%) (Auto) 84.2% (40-74) Lymphocytes (%) (Auto) 8.0% (14-46) Monocytes (%) (Auto) 6.2% (4-12) Eosinophils (%) (Auto) 1.1% (0-5) Basophils (%) (Auto) 0.2% (0-3) Sodium Level 137mEq/L (134-144) Potassium Level 4.6mEq/L (3.5-5.2) Chloride Level 102mEq/L (97-108) Carbon Dioxide Level 19mmol/L (18-29) Blood Urea Nitrogen 12mg/dL (8-27) Creatinine 0.86mg/dL (0.57-1.00) Estimat Glomerular Filtration Rate 93mL/min (>59) Glucose Level 102mg/dL (60-99) Calcium Level 9.0mg/dL (8.5-10.1) Total Bilirubin 0.5mg/dL (0.0-1.2) Aspartate Amino Transf (AST/SGOT) 18U/L (0-50) Alanine Aminotransferase (ALT/SGPT) 11U/L (0-32) Alkaline Phosphatase 77U/L (25-165) Total Protein 5.8g/dL (6.4-8.4) Albumin 3.3g/dL (3.4-5.0) Procalcitonin 0.10ng/mL (0.00-0.08) Discharge Medications Discharge Medications ([thyroid tablet]) 162.5 MG PO DAILY (Reported) Apixaban (Eliquis) 5 Mg Tablet 5 MG PO BID 2 tabs twice daily X7 days then 1 tab twice daily afterward. Prescribed by: MAIK DURAN DO Aspirin Chew (Aspirin Chew) 81 Mg Chew 162 MG PO DAILY (Reported) Cholestyramine (Cholestyramine Packet) 4 Gm Packet 4 GM PO BID (Reported) Docusate Sodium (Colace) 100 Mg Capsule 200 MG PO DAILY (Reported) Furosemide (Furosemide) 40 Mg/4 Ml Solution 40 MG PO DAILY (Reported) Hydrocodone-Acetaminophen 10-325 mg (Hydrocodone-Acetaminophen 10-325 mg) 1 Each Tablet 2 TABLET PO DAILY (Reported) Metoprolol Tartrate (Metoprolol Tartrate) 50 Mg Tablet 50 MG PO BID (Reported) Pantoprazole DR (Pantoprazole DR) 40 Mg Tablet.dr 40 MG PO DAILY (Reported) Potassium Chloride ER (Potassium Chloride ER) 20 Meq Tablet.er 40 MEQ PO DAILY ( Reported) TAKE WITH FOOD As needed Acetaminophen (Acetaminophen) 325 Mg Tablet 650 MG PO Q4H PRN PRN For Fever ( Reported) Hydromorphone (Hydromorphone) 2 Mg Tablet 2 MG PO Q4H PRN PRN Pain (Reported) Magnesium Hydroxide (Milk of Magnesia) 400 Mg/5 Ml Oral.susp 300 ML PO BID PRN PRN For Constipation (Reported) Sennosides (Senna) 8.6 Mg Tablet 8.6 MG PO PRN For Constipation (Reported) Followup Plan Disposition: Transferred to [facility] to continue care of post op complication after CABG. Time spent 45 minutes Attending Statement I have seen and evaluated patient at bedside, in addition to directly supervising care provided by resident physician Dr Ryan on 03/14/2017. I agree with above documentation. Pt admitted in stable but guarded condition. Shortness of breath and pleuritic chest pain did not improve through hospitalization, labored breathing was perhaps even worsening. Presence of effusion which may have been communicating with area near pericardium involved in recent CABG was a concern is this may has also been a complication of surgical intervention. Given stable respiratory condition but also eminent transfer patient was not considered for pleurocentesis in our facility. Additionally, given development of chills/sweats on night prior to transfer, concern for HCAP prompted initiation of antibiotic therapy. Following 48 hours in heparin drip for PE, this was discontinued and patient planned for transition to [place] at time of transfer. ASIF RYAN DO Mar 15, 2017 13:44 Maik Duran DO Mar 15, 2017 21:05
[2017-03-16] MEDS ORDERED: Vancomycin Serum Trough XX ONE (01:00)
== END 2017-03-14 15:25 | disposition short-term general hospital (02) | DRG 175 ==
LOC: SED 14:57 → EDBD 14:57 → PCC 19:37
PROVIDERS: ADMIT Family Medicine; ATTEND Family Medicine
DX: I26.99 Other pulmonary embolism without acute cor pulmonale (principal); J18.9 Pneumonia, unspecified organism; J90 Pleural effusion, not elsewhere classified; C49.A0 Gastrointestinal stromal tumor, unspecified site; I48.0 Paroxysmal atrial fibrillation; D64.89 Other specified anemias; N18.3 Chronic kidney disease, stage 3 (moderate); E03.9 Hypothyroidism, unspecified; G47.33 Obstructive sleep apnea (adult) (pediatric); I34.0 Nonrheumatic mitral (valve) insufficiency; Z79.82 Long term (current) use of aspirin; Z95.1 Presence of aortocoronary bypass graft; Z98.890 Other specified postprocedural states